=== PATIENT | male | born 1970 | race American Indian/Alaskan Native ===

== ENCOUNTER 2016-12-01 13:03 | Inpatient (IN) | payer OTHER ==
[2016-12-01] MEDS ORDERED: NACL 0.9% 1000 ML 1,000 ML IV ONE ×2 (13:32→14:29)
[2016-12-01] MEDS ORDERED: ROCEPHIN/NS 1 GM/50 ML 1 GM/50 ML BAG IV ONE (13:41)
[2016-12-01] MEDS ORDERED: ZOFRAN IV ONE (13:41)
[2016-12-01 13:44] LABS: Bilirubin,Urine NEG (Negative); Blood,Urine MOD (Negative); Ketones,Urine 20 mg/dL (Negative); Leukocyte Esterase,Urine NEG (Negative); Nitrite,Urine NEG (Negative)
--- NOTE | 2016-12-01 13:46 | Emergency Department Report ---
ED General Adult HPI - General Chief complaint: Nausea/Vomiting/Diarrhea Stated complaint: FLU Time Seen by Provider: 12/01/16 13:32 Source: patient Mode of arrival: Ambulatory Limitations: No Limitations - History of Present Illness Initial comments: Patient comes into the ER with complaints of generalized body aches, sore throat , nausea, vomiting for the past 6 days. Patient states that he was working out in the rain on Saturday and believes he started getting sick shortly after. Patient states that he has not been eating very much this past week and thinks that he may be dehydrated currently. Patient denies any known health problems. Patient states he's been having a lot of body aches and chills. Severity scale (0 -10): 8 - Related Data Allergies Allergy/AdvReac Type Severity Reaction Status Date / Time Penicillins AdvReac Swelling Verified 12/01/16 13:21 ED Review of Systems ROS: Stated complaint: FLU Other details as noted in HPI Constitutional: chills, fever Eyes: denies: eye pain, eye discharge, vision change ENT: throat pain, congestion. denies: ear pain Respiratory: denies: cough, shortness of breath, wheezing Cardiovascular: denies: chest pain, palpitations Endocrine: no symptoms reported Gastrointestinal: nausea, vomiting. denies: abdominal pain, diarrhea Genitourinary: denies: urgency, dysuria Musculoskeletal: myalgia. denies: back pain, joint swelling, arthralgia Skin: denies: rash, lesions Neurological: denies: headache, weakness, paresthesias Psychiatric: denies: anxiety, depression Hematological/Lymphatic: denies: easy bleeding, easy bruising ED Past Medical Hx - Past Medical History Previous Medical History?: No - Surgical History Past Surgical History?: No - Social History Smoking Status: Current Every Day Smoker Substance Use Type: None ED Physical Exam - General Limitations: No Limitations General appearance: alert, in no apparent distress - Head Head exam: Present: atraumatic, normocephalic - Eye Eye exam: Present: normal appearance - ENT ENT exam: Present: mucous membranes dry, TM's normal bilaterally, normal external ear exam, other (posterior pharynx erythematous with white patches.) - Neck Neck exam: Present: normal inspection, full ROM. Absent: tenderness, lymphadenopathy - Respiratory Respiratory exam: Present: normal lung sounds bilaterally. Absent: respiratory distress, wheezes, rales, decreased breath sounds - Cardiovascular Cardiovascular Exam: Present: normal rhythm, tachycardia. Absent: systolic murmur, diastolic murmur, rubs, gallop - GI/Abdominal GI/Abdominal exam: Present: soft, normal bowel sounds. Absent: distended, tenderness, guarding, rebound, rigid, organomegaly, mass - Rectal Rectal exam: Present: deferred - Extremities Exam Extremities exam: Present: normal inspection - Back Exam Back exam: Present: normal inspection - Neurological Exam Neurological exam: Present: alert, oriented X3, CN II-XII intact - Psychiatric Psychiatric exam: Present: normal affect, normal mood - Skin Skin exam: Present: warm, dry, intact, normal color. Absent: rash ED Course Vital Signs 12/01/16 12/01/16 12/01/16 13:19 14:48 15:06 Temperature 99.9 F H 103.1 F H Pulse Rate 113 H Respiratory 20 22 Rate Blood Pressure 133/81 [Right] O2 Sat by Pulse 97 Oximetry 12/01/16 12/01/16 12/01/16 16:06 16:16 16:27 Temperature 100.4 F H Pulse Rate 94 H Respiratory 16 16 16 Rate Blood Pressure 119/71 [Right] O2 Sat by Pulse 95 95 Oximetry ED Medical Decision Making - Lab Data Result diagrams: 12/01/16 13:40 12/01/16 13:40 Lab Results 12/01/16 12/01/16 12/01/16 Range/Units 13:35 13:40 13:40 WBC 16.2 H (4.5-11.0) K/mm3 RBC 5.24 H (3.65-5.03) M/mm3 Hgb 15.9 H (11.8-15.2) gm/dl Hct 46.9 H (35.5-45.6) % MCV 89 (84-94) fl MCH 30 (28-32) pg MCHC 34 (32-34) % RDW 13.4 (13.2-15.2) % Plt Count 224 (140-440) K/mm3 Lymph % (Auto) 5.5 L (13.4-35.0) % La[place] % (Auto) 4.9 (0.0-7.3) % Eos % (Auto) 0.2 (0.0-4.3) % Baso % (Auto) 0.1 (0.0-1.8) % Lymph # 0.9 L (1.2-5.4) K/mm3 Lares # 0.8 (0.0-0.8) K/mm3 Eos # 0.0 (0.0-0.4) K/mm3 Baso # 0.0 (0.0-0.1) K/mm3 Seg Neutrophils % 89.3 H (40.0-70.0) % Seg Neutrophils # 14.4 H (1.8-7.7) K/mm3 Sodium 133 L (137-145) mmol/L Potassium 3.0 L (3.6-5.0) mmol/L Chloride 90.1 L (98-107) mmol/L Carbon Dioxide 24 (22-30) mmol/L Anion Gap 22 mmol/L BUN 24 H (9-20) mg/dL Creatinine 1.4 (0.8-1.5) mg/dL Estimated GFR > 60 ml/min BUN/Creatinine Ratio 17.14 % Glucose 138 H (75-100) mg/dL Calcium 8.8 (8.4-10.2) mg/dL Urine Color Tiara (Yellow) Urine Turbidity Clear (Clear) Urine pH 5.0 (5.0-7.0) Ur Specific [place] 1.039 H (1.003-1.030) Urine Protein 100 mg/dl (Negative) mg/dL Urine Glucose (UA) Neg (Negative) mg/dL Urine Ketones 20 (Negative) mg/dL Urine Blood Mod (Negative) Urine Nitrite Neg (Negative) Urine Bilirubin Neg (Negative) Urine Urobilinogen 4.0 (<2.0) mg/dL Ur Leukocyte Esterase Neg (Negative) Urine WBC (Auto) 7.0 H (0.0-6.0) /HPF Urine RBC (Auto) 4.0 (0.0-6.0) /HPF U Epithel Cells (Auto) 5.0 (0-13.0) /HPF - Radiology Data Radiology results: image reviewed interpreted by me: Chest x-ray: Large lateral infiltrate noted to left lobes - Medical Decision Making Patient does appear to be feeling ill upon initial examination. Lab results as well as x-ray results reviewed and discussed the patient in room. Workup reveals patient to have large left-sided pneumonia as well as being dehydrated. I discussed with patient options of staying in the hospital versus going home for treatment and I believe patient would benefit from staying in the hospital for continued IV therapy and monitoring. Patient is in agreement with treatment plan. I discussed case and treatment plan with attending Dr. Claudia MD. patient was given IV Rocephin, IV Zithromax, 2 L of fluids here in the ER. Contacted hospitalist for admission and he accepted patient. Critical care attestation.: If time is entered above; I have spent that time in minutes in the direct care of this critically ill patient, excluding procedure time. ED Disposition Clinical Impression: Dehydration, Acute febrile illness, Nausea and vomiting, Pneumonia Disposition: DC09 OP ADMIT IP TO THIS HOSP Is pt being admited?: Yes Does the pt Need Aspirin: No Condition: Stable Instructions: Community-acquired Pneumonia (ED) Referrals: PRIMARY CARE, [Primary Care Provider] - 3-5 Days
[2016-12-01 14:11] LABS: Basophils % (Auto) 0.1 % (0.0-1.8); Eosinophils % (Auto) 0.2 % (0.0-4.3); Hematocrit 46.9 % (35.5-45.6); Hemoglobin 15.9 gm/dl (11.8-15.2); Mean Corpuscular HGB Conc 34 % (32-34); Mean Corpuscular Hemoglobin 30 pg (28-32); Mean Corpuscular Volume 89 fl (84-94); Platelet Count 224 K/mm3 (140-440); Red Blood Count 5.24 M/mm3 (3.65-5.03); Red Cell Distribution Width 13.4 % (13.2-15.2); White Blood Count 16.2 K/mm3 (4.5-11.0)
[2016-12-01 14:25] LABS: Anion Gap 22 mmol/L; BUN/Creatinine Ratio 17.14; Blood Urea Nitrogen 24 mg/dL (9-20); Calcium 8.8 mg/dL (8.4-10.2); Carbon Dioxide 24 mmol/L (22-30); Chloride 90.1 mmol/L (98-107); Glucose 138 mg/dL (75-100); Sodium 133 mmol/L (137-145)
[2016-12-01] MEDS ORDERED: TYLENOL PO ONE (14:49)
[2016-12-01] MEDS ORDERED: ZITHROMAX 500 MG in NACL 0.9% 250ML 250 ML IV ONE (15:00)
[2016-12-01] MEDS ORDERED: DULCOLAX PR PRN (16:31)
[2016-12-01] MEDS ORDERED: MILK OF MAGNESIA PO PRN (16:31)
[2016-12-01] MEDS ORDERED: DILAUDID IV PRN (16:31)
--- NOTE | 2016-12-01 16:31 | History and Physical Report ---
History of Present Illness Date of examination: 12/01/16 Date of admission: 12/01/16 Chief complaint: Fever body aches and cough for 6 days History of present illness: [place]: Patient comes into the ER with complaints of generalized body aches, sore throat , nausea, vomiting for the past 6 days. Patient states that he was working out in the rain on Saturday and believes he started getting sick shortly after. Patient states that he has not been eating very much this past week and thinks that he may be dehydrated currently. Patient denies any known health problems. Patient states he's been having a lot of body aches and chills. Severity scale (0 -10): 8 - Related Data Allergies Allergy/AdvReac Type Severity Reaction Status Date / Time Penicillins AdvReac Swelling Verified 12/01/16 13:21 Past Medical History Previous Medical History?: No - Surgical History Past Surgical History?: No - Social History Smoking Status: Current Every Day Smoker Substance Use Type: None Fam Hx HTN Review of Systems Stated complaint: FLU Other details as noted in HPI Constitutional: chills, fever Eyes: denies: eye pain, eye discharge, vision change ENT: throat pain, congestion. denies: ear pain Respiratory: denies: cough, shortness of breath, wheezing Cardiovascular: denies: chest pain, palpitations Endocrine: no symptoms reported Gastrointestinal: nausea, vomiting. denies: abdominal pain, diarrhea Genitourinary: denies: urgency, dysuria Musculoskeletal: myalgia. denies: back pain, joint swelling, arthralgia Skin: denies: rash, lesions Neurological: denies: headache, weakness, paresthesias Psychiatric: denies: anxiety, depression Hematological/Lymphatic: denies: easy bleeding, easy bruising Past History Past Medical History: No medical history Past Surgical History: No surgical history Social history: lives with family, smoking, other Medications and Allergies Allergies Allergy/AdvReac Type Severity Reaction Status Date / Time Penicillins AdvReac Swelling Verified 12/01/16 13:21 Home Medications Medication Instructions Recorded Confirmed Last Taken Type No Known Home Medications [No 12/01/16 12/01/16 Unknown History Reported Home Medications] Review of Systems All systems: negative Exam - Physical Exam Narrative exam: Lying comfortably - Constitutional Vitals: Temp Pulse Resp BP Pulse Ox 103.1 F H 113 H 16 133/81 95 12/01/16 14:48 12/01/16 13:19 12/01/16 16:16 12/01/16 13:19 12/01/16 16:16 General appearance: Present: no acute distress, well-nourished - EENT Eyes: Present: PERRL ENT: hearing intact, clear oral mucosa - Neck Neck: Present: supple, normal ROM - Respiratory Respiratory effort: normal Respiratory: left: rales (L infra axillary area), bilateral: CTA - Cardiovascular Heart rate: 96 Rhythm: regular Heart Sounds: Present: S1 & S2. Absent: rub, click - Extremities Extremities: no ischemia, pulses intact, pulses symmetrical, No edema Peripheral Pulses: within normal limits - Abdominal General gastrointestinal: Present: soft, non-tender, non-distended, normal bowel sounds Male genitourinary: Present: normal - Rectal Rectal Exam: deferred - Integumentary Integumentary: Present: clear, warm, dry - Musculoskeletal Musculoskeletal: gait normal, strength equal bilaterally - Psychiatric Psychiatric: appropriate mood/affect, intact judgment & insight - Neurologic Neurologic: CNII-XII intact, moves all extremities, gait normal Results - Labs CBC & Chem 7: 12/04/16 06:20 12/04/16 06:19 Labs: Laboratory Last Values WBC 16.2 K/mm3 (4.5-11.0) H 12/01/16 13:40 RBC 5.24 M/mm3 (3.65-5.03) H 12/01/16 13:40 Hgb 15.9 gm/dl (11.8-15.2) H 12/01/16 13:40 Hct 46.9 % (35.5-45.6) H 12/01/16 13:40 MCV 89 fl (84-94) 12/01/16 13:40 MCH 30 pg (28-32) 12/01/16 13:40 MCHC 34 % (32-34) 12/01/16 13:40 RDW 13.4 % (13.2-15.2) 12/01/16 13:40 Plt Count 224 K/mm3 (140-440) 12/01/16 13:40 Lymph % (Auto) 5.5 % (13.4-35.0) L 12/01/16 13:40 [place] % (Auto) 4.9 % (0.0-7.3) 12/01/16 13:40 Eos % (Auto) 0.2 % (0.0-4.3) 12/01/16 13:40 Baso % (Auto) 0.1 % (0.0-1.8) 12/01/16 13:40 Lymph # 0.9 K/mm3 (1.2-5.4) L 12/01/16 13:40 [place] # 0.8 K/mm3 (0.0-0.8) 12/01/16 13:40 Eos # 0.0 K/mm3 (0.0-0.4) 12/01/16 13:40 Baso # 0.0 K/mm3 (0.0-0.1) 12/01/16 13:40 Seg Neutrophils % 89.3 % (40.0-70.0) H 12/01/16 13:40 Seg Neutrophils # 14.4 K/mm3 (1.8-7.7) H 12/01/16 13:40 Sodium 133 mmol/L (137-145) L 12/01/16 13:40 Potassium 3.0 mmol/L (3.6-5.0) L 12/01/16 13:40 Chloride 90.1 mmol/L (98-107) L 12/01/16 13:40 Carbon Dioxide 24 mmol/L (22-30) 12/01/16 13:40 Anion Gap 22 mmol/L 12/01/16 13:40 BUN 24 mg/dL (9-20) H 12/01/16 13:40 Creatinine 1.4 mg/dL (0.8-1.5) 12/01/16 13:40 Estimated GFR > 60 ml/min 12/01/16 13:40 BUN/Creatinine Ratio 17.14 % 12/01/16 13:40 Glucose 138 mg/dL (75-100) H 12/01/16 13:40 Lactic Acid 1.70 mmol/L (0.7-2.0) 12/01/16 14:47 Calcium 8.8 mg/dL (8.4-10.2) 12/01/16 13:40 Lipase 15 units/L (13-60) 12/01/16 13:40 Urine Color [place] (Yellow) 12/01/16 13:35 Urine Turbidity Clear (Clear) 12/01/16 13:35 Urine pH 5.0 (5.0-7.0) 12/01/16 13:35 Ur Specific [place] 1.039 (1.003-1.030) H 12/01/16 13:35 Urine Protein 100 mg/dl mg/dL (Negative) 12/01/16 13:35 Urine Glucose (UA) Neg mg/dL (Negative) 12/01/16 13:35 Urine Ketones 20 mg/dL (Negative) 12/01/16 13:35 Urine Blood Mod (Negative) 12/01/16 13:35 Urine Nitrite Neg (Negative) 12/01/16 13:35 Urine Bilirubin Neg (Negative) 12/01/16 13:35 Urine Urobilinogen 4.0 mg/dL (<2.0) 12/01/16 13:35 Ur Leukocyte Esterase Neg (Negative) 12/01/16 13:35 Urine WBC (Auto) 7.0 /HPF (0.0-6.0) H 12/01/16 13:35 Urine RBC (Auto) 4.0 /HPF (0.0-6.0) 12/01/16 13:35 U Epithel Cells (Auto) 5.0 /HPF (0-13.0) 12/01/16 13:35 Short CBC 12/01/16 12/02/16 Range/Units 13:40 04:38 WBC 16.2 H 12.3 H (4.5-11.0) K/mm3 Hgb 15.9 H 14.4 (11.8-15.2) gm/dl Hct 46.9 H 42.7 (35.5-45.6) % Plt Count 224 204 (140-440) K/mm3 BMP 12/01/16 12/02/16 13:40 04:38 Sodium 133 L 132 L Potassium 3.0 L 3.1 L Chloride 90.1 L 93.5 L Carbon Dioxide 24 22 BUN 24 H 16 Creatinine 1.4 1.0 Glucose 138 H 135 H Calcium 8.8 8.1 L Liver Function 12/02/16 Range/Units 04:38 Total Bilirubin 0.40 (0.1-1.2) mg/dL AST 80 H (5-40) units/L ALT 49 (7-56) units/L Alkaline Phosphatase 54 (35-129) units/L Albumin 2.5 L (3.9-5) g/dL Urine 12/01/16 Range/Units 13:35 Urine Color [place] (Yellow) Urine pH 5.0 (5.0-7.0) Ur Specific [place] 1.039 H (1.003-1.030) Urine Protein 100 mg/dl (Negative) mg/dL Urine Glucose (UA) Neg (Negative) mg/dL Assessment and Plan Advance Directives: Yes - Patient Problems (1) Pneumonia Current Visit: Yes Status: Acute Qualifiers: Pneumonia type: P Aspiration pneumonia type: A Laterality: left Lung location: upper lobe of lung Plan to address problem: lLeft pneumonia extensive (2) Acute febrile illness Current Visit: Yes Status: Acute Plan to address problem: Symptomatic treatment (3) Dehydration Current Visit: Yes Status: Acute Plan to address problem: IV fluids Cr 1.6 and Urine sp gravity high 1.034 (4) Hypokalemia Current Visit: Yes Status: Acute Plan to address problem: Supplemented
[2016-12-01] MEDS: LOVENOX SUB-Q SCH (17:15)
[2016-12-01] MEDS: D5NS 1,000 ML IV SCH (17:16)
[2016-12-01] MEDS: TYLENOL PO PRN (17:22)
[2016-12-01] MEDS: ZOFRAN IV PRN (19:45)
[2016-12-01] MEDS ORDERED: ZOFRAN IV PRN (20:55)
[2016-12-01] MEDS ORDERED: PHENERGAN PR PRN (20:57)
--- NOTE | 2016-12-02 01:20 | Admit Criteria Form ---
Admission Criteria Documentation: DEHYDRATION Clinical Indications for Admission to Inpatient Care (Place 'X' for any and all applicable criteria): Admission is indicated for ANY ONE of the following (1)(2)(3)(4)(5): [X ]I. Inpatient admission required rather than observation care (see Dehydration: Observation Care guideline as appropriate) because of ANY ONE of the following: [X ]a) Vomiting that is severe or persistent [ ]b) Severe electrolyte abnormalities requiring inpatient care [ ]c) Hemodynamic instability [ ]d) IV fluid to replace significant ongoing losses (greater than 3 L/m2 per day (10) (11) [ ]e) Parenteral nutrition regimen that must be implemented on inpatient basis [ ]f) Other condition,treatment or monitoring requiring inpatient admission [ ]II. Serious cause for dehydration requiring acute hospitalization (eg, bowel obstruction, increased intracranial pressure, infectious cause) Extended stay beyond goal length of stay may be needed for(1)(3 )(4)(17): [ ]a) Chronic severe dehydration [ ]b) Persistent vital sign changes, severe electrolyte imbalance, or diagnosed cause of dehydration that requires continued hospitalization (eg, bowel obstruction, increased intracranial pressure) [ ]c) Older patients (65 years or older) [ ]d) Severe comorbid illness (eg, renal failure, heart failure, poorly controlled diabetes) The original [facility] content created by [facility] has been revised. The portions of the content which have been revised are identified through the use of italic text or in bold, and [facility] has neither reviewed nor approved the modified material. All other unmodified content is copyright [facility]. Please see references footnoted in the original [facility] edition 2016 Admission Criteria Met: Yes
[2016-12-02] MEDS: PERCOCET 5/325 PO PRN ×2 (05:35→13:18)
[2016-12-02] MEDS: D5NS 1,000 ML IV SCH (05:37)
[2016-12-02 05:39] LABS: Basophils % (Auto) 0.1 % (0.0-1.8); Hematocrit 42.7 % (35.5-45.6); Hemoglobin 14.4 gm/dl (11.8-15.2); Mean Corpuscular HGB Conc 34 % (32-34); Mean Corpuscular Hemoglobin 30 pg (28-32); Mean Corpuscular Volume 90 fl (84-94); Platelet Count 204 K/mm3 (140-440); Red Blood Count 4.74 M/mm3 (3.65-5.03); Red Cell Distribution Width 13.2 % (13.2-15.2); White Blood Count 12.3 K/mm3 (4.5-11.0)
[2016-12-02 06:06] LABS: Alanine Aminotransferase 49 units/L (7-56); Albumin 2.5 g/dL (3.9-5); Albumin/Globulin Ratio 0.6 %; Alkaline Phosphatase 54 units/L (35-129); Anion Gap 20 mmol/L; Blood Urea Nitrogen 16 mg/dL (9-20); Calcium 8.1 mg/dL (8.4-10.2); Carbon Dioxide 22 mmol/L (22-30); Chloride 93.5 mmol/L (98-107); Glucose 135 mg/dL (75-100); Potassium 3.1 mmol/L (3.6-5.0); Sodium 132 mmol/L (137-145); Total Protein 6.6 g/dL (6.3-8.2)
--- NOTE | 2016-12-02 10:12 | XRay Report ---
CHEST X-RAY, 2 VIEWS: HISTORY: Fever No comparison. There is a large infiltrate throughout the lingula consistent with pneumonia. The remainder of the lungs are clear. No pleural effusion or pneumothorax. Heart and mediastinal structures are within normal limits. IMPRESSION: Left lung pneumonia.
[2016-12-02] MEDS ORDERED: PNEUMOVAX 23 IM ONE (12:00)
--- NOTE | 2016-12-02 13:05 | Progress Note ---
Assessment and Plan - Patient Problems (1) Pneumonia Current Visit: Yes Status: Acute Qualifiers: Pneumonia type: P Aspiration pneumonia type: A Laterality: left Lung location: upper lobe of lung Plan to address problem: lLeft pneumonia extensive (2) Acute febrile illness Current Visit: Yes Status: Acute Plan to address problem: Symptomatic treatment (3) Dehydration Current Visit: Yes Status: Acute Plan to address problem: IV fluids Cr 1.6 and Urine sp gravity high 1.034 Cr Improved to 1.0 (4) DVT prophylaxis Current Visit: Yes Status: Acute Plan to address problem: On Lovenox Subjective Date of service: 12/02/16 Principal diagnosis: Pneumonia Interval history: Symptomatically better Objective - Exam Narrative Exam: Lying comfortably - Constitutional Vitals: Vital Signs - 12hr 12/02/16 12/02/16 05:35 07:30 Temperature 99.7 F H Pulse Rate [ 80 Right From Monitor] Respiratory 20 20 Rate Blood Pressure 111/69 [Right Arm] O2 Sat by Pulse 94 Oximetry General appearance: Present: no acute distress, well-nourished - EENT Eyes: PERRL, EOM intact ENT: hearing intact, clear oral mucosa Ears: bilateral: normal - Neck Neck: supple, normal ROM - Respiratory Respiratory effort: normal Respiratory: bilateral: CTA - Breasts Breasts: normal - Cardiovascular Rhythm: regular Heart Sounds: Present: S1 & S2. Absent: gallop, rub Extremities: pulses intact, No edema, normal color, Full ROM - Gastrointestinal General gastrointestinal: Present: soft, non-tender, non-distended, normal bowel sounds - Genitourinary Male genitourinary: normal - Integumentary Integumentary: clear, warm, dry - Musculoskeletal Musculoskeletal: 1, strength equal bilaterally - Neurologic Neurologic: moves all extremities - Psychiatric Psychiatric: memory intact, appropriate mood/affect, intact judgment & insight - Labs CBC & Chem 7: 12/04/16 06:20 12/04/16 06:19 Labs: Abnormal lab results 12/02/16 12/02/16 Range/Units 04:38 04:38 WBC 12.3 H (4.5-11.0) K/mm3 Lymph % (Auto) 7.9 L (13.4-35.0) % Lymph # 1.0 L (1.2-5.4) K/mm3 Seg Neutrophils % 88.8 H (40.0-70.0) % Seg Neutrophils # 11.0 H (1.8-7.7) K/mm3 Sodium 132 L (137-145) mmol/L Potassium 3.1 L (3.6-5.0) mmol/L Chloride 93.5 L (98-107) mmol/L Glucose 135 H (75-100) mg/dL Calcium 8.1 L (8.4-10.2) mg/dL AST 80 H (5-40) units/L Albumin 2.5 L (3.9-5) g/dL
[2016-12-02] MEDS: ZOFRAN IV PRN ×2 (13:18→23:18)
[2016-12-02] MEDS: HABITROL TD SCH (15:15)
[2016-12-02] MEDS: ROCEPHIN/NS 2 GM/100 ML 2 GM/100 ML BAG IV SCH (15:15)
[2016-12-02] MEDS: ZITHROMAX 500 MG in NACL 0.9% 250ML 250 ML IV SCH (17:28)
[2016-12-02] MEDS: LOVENOX SUB-Q SCH (18:20)
[2016-12-03] MEDS: D5NS 1,000 ML IV SCH ×2 (00:48→18:58)
[2016-12-03] MEDS: HABITROL TD SCH (10:31)
[2016-12-03] MEDS: ROCEPHIN/NS 2 GM/100 ML 2 GM/100 ML BAG IV SCH (13:16)
--- NOTE | 2016-12-03 14:46 | Progress Note ---
Assessment and Plan - Patient Problems (1) Pneumonia Current Visit: Yes Status: Acute Qualifiers: Pneumonia type: P Aspiration pneumonia type: A Laterality: left Lung location: upper lobe of lung Plan to address problem: lLeft pneumonia extensive Cont Abx (2) Acute febrile illness Current Visit: Yes Status: Acute Plan to address problem: Symptomatic treatment (3) Dehydration Current Visit: Yes Status: Acute Plan to address problem: IV fluids Cr 1.6 and Urine sp gravity high 1.034 Creatinine improved (4) DVT prophylaxis Current Visit: Yes Status: Acute Plan to address problem: On Lovenox Subjective Date of service: 12/03/16 Principal diagnosis: Pna+ Dehydration Interval history: Symptomatically better Objective - Exam Narrative Exam: Lying comfortably - Constitutional Vitals: Vital Signs - 12hr 12/03/16 12/03/16 07:00 10:37 Temperature 98.7 F Pulse Rate [ 75 Right From Monitor] Respiratory 18 Rate Blood Pressure 122/57 [Right Arm] O2 Sat by Pulse 95 99 Oximetry General appearance: Present: no acute distress, well-nourished - EENT Eyes: PERRL, EOM intact ENT: hearing intact, clear oral mucosa Ears: bilateral: normal - Neck Neck: supple, normal ROM - Respiratory Respiratory effort: normal Respiratory: bilateral: CTA - Breasts Breasts: normal - Cardiovascular Rhythm: regular Heart Sounds: Present: S1 & S2. Absent: gallop, rub Extremities: pulses intact, No edema, normal color, Full ROM - Gastrointestinal General gastrointestinal: Present: soft, non-tender, non-distended, normal bowel sounds - Genitourinary Male genitourinary: normal - Integumentary Integumentary: clear, warm, dry - Musculoskeletal Musculoskeletal: 1, strength equal bilaterally - Neurologic Neurologic: moves all extremities - Psychiatric Psychiatric: memory intact, appropriate mood/affect, intact judgment & insight - Labs CBC & Chem 7: 12/04/16 06:20 12/04/16 06:19
[2016-12-03] MEDS: ZITHROMAX 500 MG in NACL 0.9% 250ML 250 ML IV SCH (15:27)
[2016-12-03] MEDS: TYLENOL PO PRN (15:39)
[2016-12-03] MEDS: LOVENOX SUB-Q SCH (16:58)
[2016-12-03] MEDS ORDERED: DUONEB *Not for PRN Use IH SCH (20:00)
[2016-12-03] MEDS ORDERED: PROVENTIL IH PRN (21:19)
[2016-12-04] MEDS: PERCOCET 5/325 PO PRN (01:23)
[2016-12-04] MEDS: D5NS 1,000 ML IV SCH (06:14)
[2016-12-04 07:07] LABS: Basophils % (Auto) 0.5 % (0.0-1.8); Eosinophils % (Auto) 3.2 % (0.0-4.3); Hematocrit 43.3 % (35.5-45.6); Hemoglobin 14.4 gm/dl (11.8-15.2); Mean Corpuscular HGB Conc 33 % (32-34); Mean Corpuscular Hemoglobin 30 pg (28-32); Mean Corpuscular Volume 90 fl (84-94); Platelet Count 228 K/mm3 (140-440); Red Blood Count 4.83 M/mm3 (3.65-5.03); Red Cell Distribution Width 13.5 % (13.2-15.2); White Blood Count 7.2 K/mm3 (4.5-11.0)
[2016-12-04 07:15] LABS: Anion Gap 16 mmol/L; BUN/Creatinine Ratio 14.28; Blood Urea Nitrogen 10 mg/dL (9-20); Calcium 8.2 mg/dL (8.4-10.2); Carbon Dioxide 27 mmol/L (22-30); Chloride 99.7 mmol/L (98-107); Glucose 115 mg/dL (75-100); Sodium 140 mmol/L (137-145)
[2016-12-04 07:24] LABS: Potassium 2.9 mmol/L (3.6-5.0)
[2016-12-04] MEDS ORDERED: K-DUR PO ONE ×2 (08:00→12:00)
[2016-12-04] MEDS ORDERED: MAGNESIUM SULFATE 2GM/50ML 2 GM/50 ML BAG IV ONE (09:00)
[2016-12-04 11:05] VITALS: BP 111/73
[2016-12-04] MEDS: HABITROL TD SCH (11:08)
--- NOTE | 2016-12-04 11:27 | Discharge Summary ---
Providers - Providers Date of Admission: 12/01/16 16:31 Date of discharge: 12/04/16 Attending physician: MAURA LYLES Primary care physician: DATA CONTROL CLERK SUPERVISOR Hospitalization Condition: Stable Hospital course: Patient's 46-year-old man history of tobacco dependency who presents with shortness of breath, cough and fever. Chest today showed left lingula lobe pneumonia. -Sepsis pneumonia is evidence by heart rate of 94 white blood count 16.2, present on admission -Hypokalemia, no diarrhea, had nausea and vomiting now resolved. -Left lingula lobe pneumonia, most likely gram-positive, Streptococcus pneumoniae -Tobacco dependency: Counseling on stopping Disposition: DC-01 TO HOME OR SELFCARE Time spent for discharge: 34 minutes Core Measure Documentation - Palliative Care Palliative Care/ Comfort Measures: Not Applicable - Core Measures Any of the following diagnoses?: none - VTE Discharge Requirements Deep Vein Thrombosis/Pulmonary Embolism Present on Admission: No Has pt received <5 days of overlap therapy or INR<2.0: No Anticoagulant overlap therapy prescribed at discharge: No Contraindication No Overlap Therapy order at DC: Not Indicated Exam - Physical Exam Narrative exam: GEN: WDWN, NAD, AWAKE, ALERT, ORIENTATED x 3 CVS: RRR, NORMAL S1S2 LUNGS/CHEST: coarse left bs but NORMAL CHEST EXPANSION B and GOOD AIR ENTRY B ABD: SOFT, NTND, GBS, NO REBOUND OR GUARDING EXT/SKIN: NO SIGNIFICANT EDEMA OR RASH MSK: FROM X 4 EXTREMITIES NEURO: CN 2-12 GROSSLY INTACT, NO FOCAL DEFICITS PSY: CALM - Constitutional Vitals: Temp Pulse Resp BP Pulse Ox 98.3 F 69 19 111/73 95 12/04/16 07:00 12/04/16 07:00 12/04/16 07:00 12/04/16 07:00 12/04/16 08:50 Plan Activity: other (no strenous activites until cleared by PCP. ) Diet: regular Follow up with: PRIMARY CARE, [Primary Care Provider] - 3-5 Days Forms: Work/School Release Form Prescriptions: ALBUTEROL Inhaler [ProAir HFA Inhaler] 2 puff IH QID PRN #1 unit PRN Reason: Shortness Of Breath Benzonatate [Tessalon Perles] 100 mg PO Q8HR PRN #30 capsule PRN Reason: Cough Levofloxacin [Levaquin] 750 mg PO QDAY #7 day Nicotine [Habitrol] 21 mg TD QDAY #14 patch Potassium Chloride [K-Dur] 20 meq PO QDAY #5 tablet
[2016-12-04] MEDS ORDERED: ZITHROMAX PO SCH (12:00)
[2016-12-04] MEDS ORDERED: PNEUMOVAX 23 IM ONE (12:36)
== END 2016-12-04 14:25 | disposition home or self-care (01) | DRG 871 ==
LOC: ED 13:03 → 3A 16:31
PROVIDERS: ADMIT Internal Medicine; ATTEND Internal Medicine
DX: A41.9 Sepsis, unspecified organism (principal); J15.4 Pneumonia due to other streptococci; E86.0 Dehydration; F17.210 Nicotine dependence, cigarettes, uncomplicated; E87.6 Hypokalemia; Z88.0 Allergy status to penicillin; Z71.6 Tobacco abuse counseling
CPT/HCPCS: 36415; 71020; 80048; 80053; 81001; 82140; 83690; 85025; 87040; 87116; 87430; 90732; 94640; 96365; 96367; 96372; 96375; 99406; J0456; J0696; J1170; J1650; J2405; J3475; J7030; J7042; J7050